=== PATIENT | male | born 1975 | race Caucasian/White ===

== ENCOUNTER 2021-09-15 12:33 | Emergency (ER) | payer BC ==
[2021-09-15 12:42] VITALS: BP 132/83; PULSE 90
== END 2021-09-15 14:08 | disposition home or self-care (01) ==
LOC: JD.ED 12:33
DX: S01.511A Laceration without foreign body of lip, initial encounter (principal); S01.512A Laceration without foreign body of oral cavity, initial encounter; W00.0XXA Fall on same level due to ice and snow, initial encounter
CPT/HCPCS: 99282